=== PATIENT | male | born 1950 | race Caucasian/White ===

== ENCOUNTER 2018-06-18 08:46 | Outpatient (CLI) | payer OTHER ==
[2018-06-18 09:34] LABS: eGFR (Non-African) > 60
== END 2018-06-18 09:00 ==
LOC: LAB 08:46
PROVIDERS: ATTEND Family Medicine
DX: F51.01 Primary insomnia (principal); E78.5 Hyperlipidemia, unspecified; R73.9 Hyperglycemia, unspecified
CPT/HCPCS: 36415; 80053; 80061; 83036

== ENCOUNTER 2018-07-13 08:20 | Outpatient (CLI) | payer OTHER ==
[2018-07-13 09:06] LABS: eGFR (Non-African) > 60
== END 2018-07-13 08:24 ==
LOC: LAB 08:20
PROVIDERS: ATTEND Family Medicine
DX: E87.5 Hyperkalemia (principal)
CPT/HCPCS: 36415; 80048